=== PATIENT | male | born 1980 | race African-American/Black ===

== ENCOUNTER 2018-02-24 13:10 | Emergency (ER) | payer OTHER, MEDICAID ==
[~2018-02-24] VITALS: Ht 180.3 cm; Wt 86.2 kg
[~2018-02-24 13:10] MED LIST: BACTRIM DS TAB1 EACH PO; NORCO 5-325 TA1 EACH PO
[2018-02-24] MEDS ORDERED: BUSPIRONE HCL10 MG PO (13:22)
[2018-02-24] MEDS ORDERED: XANAX 0.5 MG0.5 M1 PO (13:22)
[2018-02-24] MEDS ORDERED: TRAZODONE 150150 M1 PO (13:23)
[2018-02-24] MEDS ORDERED: AMITRIPTYLINE H25 M2 PO (13:23)
[2018-02-24] MEDS ORDERED: IBUPROFEN 600600 M1 PO (14:43)
[2018-02-24 14:57] VITALS: BP 138/64
--- NOTE | 2018-02-24 16:34 | EKG ---
[facility] [address] [place] [address] ELECTROCARDIOGRAM REPORT Name: YOLANDA ROWE [id number] Admission: 02/24/18 Attend Phys: Discharge: 02/24/18 Date of : 76 Report #: [id number] THIS REPORT FOR: //name// [facility] ED Test Date: 2018-02-24 Test Time: 13:17:57 Pat Name: YOLANDA SOLEDAD Department: Room: Gender: M [employer]: : 1980 Requested By: Karen Mcelroy Order Number: [id number] MD: Leonardo Vaughn Measurements Intervals [place] Rate: 53 P: 43 [place]: 157 QRS: 60 QRSD: 88 T: 48 QT: 401 QTc: 377 Interpretive Statements Sinus rhythm ST elev, probable normal early repol pattern Baseline wander in lead(s) I,II,aVR,V2 No previous ECG available for comparison Electronically Signed On 02-24-2018 16:34:32 CDT by Leonardo Vaughn [email or web address] <ELECTRONICALLY SIGNED> By: Leonardo Vaughn MD, [facility] 02/24/18 1634 16 16 Leonardo Vaughn MD, [facility] /EPI
== END 2018-02-24 14:58 | disposition home or self-care (01) ==
LOC: M.ERS 13:10
DX: I80.8 Phlebitis and thrombophlebitis of other sites (principal); I10 Essential (primary) hypertension; Z91.030 Bee allergy status

== ENCOUNTER 2018-07-15 09:15 | Emergency (ER) | payer OTHER, MEDICAID ==
[~2018-07-15] VITALS: Ht 180.3 cm; Wt 90.7 kg
[~2018-07-15 09:15] MED LIST changes: +AMITRIPTYLINE H25 M2 PO; +BUSPIRONE HCL10 MG PO; +IBUPROFEN 600600 M1 PO; +TRAZODONE 150150 M1 PO; +XANAX 0.5 MG0.5 M1 PO
[2018-07-15] MEDS ORDERED: LEXAPRO20 MG PO (09:26)
[2018-07-15 10:20] VITALS: BP 144/87
== END 2018-07-15 10:26 | disposition home or self-care (01) ==
LOC: M.ERS 09:15
DX: S00.83XA Contusion of other part of head, initial encounter (principal); I10 Essential (primary) hypertension; F17.210 Nicotine dependence, cigarettes, uncomplicated; Y08.89XA Assault by other specified means, initial encounter; Y93.89 Activity, other specified; Y92.89 Other specified places as the place of occurrence of the external cause; Y99.8 Other external cause status

== ENCOUNTER 2020-07-21 10:54 | Emergency (ER) | payer OTHER ==
[~2020-07-21] VITALS: Ht 182.9 cm; Wt 104.3 kg
[~2020-07-21 10:54] MED LIST changes: +LEXAPRO20 MG PO
[2020-07-21 11:09] VITALS: BP 138/102
== END 2020-07-21 11:15 | disposition home or self-care (01) ==
LOC: M.ERS 10:54
DX: M25.521 Pain in right elbow (principal); M79.631 Pain in right forearm; I10 Essential (primary) hypertension; Z91.030 Bee allergy status

== ENCOUNTER 2021-05-03 23:54 | Emergency (ER) | payer OTHER ==
[~2021-05-03] VITALS: Ht 182.9 cm; Wt 97.5 kg
[2021-05-04 00:09] VITALS: BP 144/91
== END 2021-05-04 00:09 | disposition short-term general hospital (02) ==
LOC: M.ERS 23:54
DX: S21.112A Laceration without foreign body of left front wall of thorax without penetration into thoracic cavity, initial encounter (principal); I10 Essential (primary) hypertension; F15.10 Other stimulant abuse, uncomplicated; Z91.030 Bee allergy status; Y08.02XA Assault by strike by baseball bat, initial encounter; Y93.89 Activity, other specified; Y92.89 Other specified places as the place of occurrence of the external cause; Y99.8 Other external cause status